=== PATIENT | male | born 1995 | race Caucasian/White ===

== ENCOUNTER 2023-01-24 20:01 | Emergency (ER) | payer SELFPAY ==
[2023-01-24 20:22] VITALS: BP 127/73; PULSE 75; RESP 14; TEMP 36.7; O2SAT 98; BMI 32.6
--- NOTE | 2023-01-24 20:26 | ECG_ITS ---
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
--- NOTE | 2023-01-24 20:31 | XR_ITS ---
The [address] [address] Patient Name: MANSOOR KIM MRN: [id number] date: 1995 Sex: M Assigned Patient Location: ER Current Patient Location: ER Accession/Order Number: [id number] Exam Date: 01/24/2023 21:10 Report Date: 01/24/2023 21:29 At the request of: EPI ENGLE Procedure: XR chest 2V EXAM: XR chest 2V REASON FOR EXAM: Male, 27 years, cp. TECHNIQUE: PA and lateral views of the chest are performed. COMPARISON: None. FINDINGS: The lungs are expanded and clear. Normal pleura. Normal size heart. Normal mediastinum and moe. Normal visualized pulmonary arteries. Normal visualized aortic arch and descending thoracic aorta. Normal visualized thoracic spine. Normal visualized ribs, clavicles, and shoulders. There is no demonstrated abnormality of the visualized soft tissue structures of the upper abdomen. XR/XR chest 2V IMPRESSION: Normal examination of the chest. Electronically authenticated by: NIRAV PENA Date: 01/24/2023 21:29
--- NOTE | 2023-01-24 20:39 | PC.NURSE ---
no chest pain at this time
[2023-01-24 21:12] LABS: Basophils Percent Auto 0.4 % (0.2-2.0); Eosinophils Percent Auto 0.5 % (0.9-7.0); Hematocrit 46.9 % (42.0-54.0); Immature Granulocytes Abs Auto 0.03 10^3/uL (0.00-0.03); Immature Granulocytes Pct Auto 0.4 % (0.0-0.5); Lymphocytes Absolute Auto 1.8 10^3/uL (1.2-3.8); Lymphocytes Percent Auto 23.6 % (20.5-60.0); Mean Corpuscular HGB Conc 34.1 g/dL (29.9-35.2); Mean Corpuscular Hemoglobin 29.8 pg (25.9-34.0); Mean Corpuscular Volume 87.3 fL (80.0-94.0); Mean Platelet Volume 8.4 fL (9.5-13.5); Monocytes Absolute Auto 0.5 10^3/uL (0.3-0.8); Monocytes Percent Auto 6.6 % (1.7-12.0); Neutrophils Absolute Auto 5.1 10^3/uL (1.4-6.5); Neutrophils Percent Auto 68.5 % (43.0-75.0); Platelet Count 265 10^3/uL (150-450); Red Blood Count 5.37 10^6/uL (4.70-6.10); Red Cell Distribution Width 12.1 % (11.0-15.0); White Blood Count 7.4 10^3/uL (4.0-11.0)
[2023-01-24 21:27] LABS: Alanine Aminotransferase 34 U/L (16-63); Albumin Globulin Ratio 1.4; Albumin Level 4.1 g/dL (3.4-5.0); Alkaline Phosphatase 57 U/L (46-116); Anion Gap 8.8; Aspartate Amino Transferase 17 U/L (15-37); BUN Creatinine Ratio 11.2; Bilirubin Total 0.6 mg/dL (0.2-1.0); Calcium 8.5 mg/dL (8.5-10.1); Carbon Dioxide 29.9 mmol/L (21.0-32.0); Chloride 103 mmol/L (98-107); Estimated GFR (African America >60 (>=60); Estimated GFR (Non-African Ame >60 (>=60); Globulin 2.9 g/dL; Glucose 87 mg/dL (74-106); Potassium 3.7 mmol/L (3.5-5.1); Sodium 138 mmol/L (136-145); Troponin I High Sensitivity <4.0 pg/mL (4.0-76.1)
--- NOTE | 2023-01-24 22:35 | PC.NURSE ---
denies chest pain at this time, EKG complete at time of triage
--- NOTE | 2023-01-24 22:49 | ED_ITS ---
HPI - Chest Pain General Chief Complaint: Chest Pain Stated Complaint: Chest pain Back Pain Time Seen by Provider: 01/24/23 20:31 Source: patient Mode of arrival: walk-in History of Present Illness HPI narrative: Patient presents to emergency department complaining of left-sided chest pain and back pain. Patient states he has pain to his suprascapular area and the lower angle of the scapula intermittently for over a month. States the pain gets better when he exerts himself not necessarily when he is lifting. The patient to sit forward. He hasn't taking anything at home for the pain. Denies any paresthesias, weakness. He denies any cough, runny nose, or sore throat. Denies any fever, or chills. He denies any abdominal pain, nausea, vomiting, diarrhea, constipation. He denies any flank pain, hematuria, dysuria. Patient states that he vapes. Has no previous history of heart disease or thromboembolic disease. He denies any lower extremity edema, or cramping. Pain is reproducible to palpation. Pain is worse when he moves his arm but after a while it actually gets better. Related Data Previous Rx's Medication Instructions Recorded cyclobenzaprine 10 mg tablet 10 mg PO TID PRN muscle spasm #14 01/24/23 tabs ibuprofen 800 mg tablet 800 mg PO Q8H PRN pain #20 tabs 01/24/23 Allergies Allergy/AdvReac Type Severity Reaction Status Date / Time amoxicillin Allergy Severe Verified 01/24/23 20:21 Review of Systems ROS Status of ROS 10 or more systems reviewed and unremarkable except as noted in history and below Exam Narrative Exam Narrative: Nurses notes and vital signs reviewed and patient is not hypoxic. General: Nontoxic, Well-appearing and in no apparent distress. Skin: Warm, dry, no pallor noted. No Rash Head: Normocephalic, atraumatic. Neck: Supple, non-tender. Eye: Pupils are equal, round and EOMI. No scleral icterus. Ears, Nose, Mouth, and Throat: TM clear, no posterior oropharynx erythema or nasal mucosal hypertrophy, uvula is mid-line Oral mucosa is moist Cardiovascular: Regular Rate and Rhythm without murmur, gallop or rub. Respiratory: No accessory muscle use or respiratory distress. Lungs are clear to auscultation, no wheezing, rales or rhonchi Chest Wall: no tenderness Back: No midline thoracic or lumbar vertebral tenderness. Tenderness to palpation to the left suprascapular area and lower scapular angle and thoracic paraspinal muscles spasms. There is no erythema, signs of trauma, infection. Pain is reproducible on palpation. No CVA tenderness Musculoskeletal: normal ROM, no calf or popliteal tenderness, no lower extremity edema/swelling GI: Abdomen is soft, non-distended. Normal bowel sounds. No masses appreciated. No tenderness to palpation. No rebound, guarding, or rigidity noted. Neurological: A&O x4. No cranial nerve dysfunction observed. No truncal ataxia. Moves all extremities. Sensation intact. Psychiatric: Cooperative and interactive. Normal mood and affect. Constitutional Vital Signs, click to edit/add: Last Vital Signs Temp 98.0 F 01/24/23 20:22 Pulse 63 01/24/23 22:51 Resp 16 01/25/23 00:00 BP 138/72 01/25/23 00:00 Pulse Ox 99 01/25/23 00:00 O2 Del Method Room Air 01/25/23 00:00 Course Vital Signs Vital signs: Vital Signs Temperature 98.0 F 01/24/23 20:22 Pulse Rate 75 01/24/23 20:22 Respiratory Rate 14 01/24/23 20:22 Blood Pressure 127/73 01/24/23 20:22 Pulse Oximetry 98 01/24/23 20:22 Oxygen Delivery Method Room Air 01/24/23 20:22 Temperature 98.0 F 01/24/23 20:22 Pulse Rate 63 01/24/23 22:51 Respiratory Rate 16 01/25/23 00:00 Blood Pressure 138/72 01/25/23 00:00 Pulse Oximetry 99 01/25/23 00:00 Oxygen Delivery Method Room Air 01/25/23 00:00 MDM - Chest Pain MDM Narrative Medical decision making narrative: The EKG shows sinus rhythm with normal axis, nonspecific EKG. Chest x-ray is unremarkable. Labs studies were done 2 troponins were done and there is no significant delta. Patient was given Toradol IV and which helped relieve his symptoms. All results were discussed with patient. Patient is advised to follow up with primary care doctor. He is given a prescription for Flexeril, and NSAIDs. At this time the patient is without objective evidence of an acute process requiring hospitalization or inpatient management. The patient has remained hemodynamically stable. No additional indication for emergent studies at this time. I answered all questions. Discussed discharge instructions including standard anticipatory guidance and what should prompt a return to the emergency department, including if they get worse are not getting better or develops any new or concerning symptoms. I've given them specific time frame in which to follow-up, and who to follow-up with. The patient demonstrates understanding. Patient is nontoxic and stable for discharge with outpatient follow-up. This note was created with the assistance of a speech recognition program. Although the intention is to generate documents that actually reflects the content of the visit, no guarantees can be provided that every mistake has been identified and corrected by editing. Lab Data Attestation: I reviewed the patient's lab results. Labs: Lab Results 01/24/23 01/24/23 01/24/23 Range/Units 21:00 22:37 22:45 WBC 7.4 (4.0-11.0) 10^3/uL RBC 5.37 (4.70-6.10) 10^6/uL Hgb 16.0 (14.0-18.0) g/dL Hct 46.9 (42.0-54.0) % MCV 87.3 (80.0-94.0) fL MCH 29.8 (25.9-34.0) pg MCHC 34.1 (29.9-35.2) g/dL RDW 12.1 (11.0-15.0) % Plt Count 265 (150-450) 10^3/uL MPV 8.4 L (9.5-13.5) fL Neut % (Auto) 68.5 (43.0-75.0) % Lymph % (Auto) 23.6 (20.5-60.0) % Hodgeman % (Auto) 6.6 (1.7-12.0) % Eos % (Auto) 0.5 L (0.9-7.0) % Baso % (Auto) 0.4 (0.2-2.0) % Neut # (Auto) 5.1 (1.4-6.5) 10^3/uL Lymph # (Auto) 1.8 (1.2-3.8) 10^3/uL Hodgeman # (Auto) 0.5 (0.3-0.8) 10^3/uL Eos # (Auto) 0.0 (0.0-0.7) 10^3/uL Baso # (Auto) 0.0 (0.0-0.1) 10^3/uL Abs Immat Gran (auto) 0.03 (0.00-0.03) 10^3/uL Imm/Tot Granulo (auto) 0.4 (0.0-0.5) % Sodium 138 (136-145) mmol/L Potassium 3.7 (3.5-5.1) mmol/L Chloride 103 (98-107) mmol/L Carbon Dioxide 29.9 (21.0-32.0) mmol/L Anion Gap 8.8 BUN 12.0 (7.0-18.0) mg/dL Creatinine 1.07 (0.70-1.30) mg/dL Est GFR ( Amer) >60 (>=60) Est GFR (Non-Af Amer) >60 (>=60) BUN/Creatinine Ratio 11.2 Glucose 87 (74-106) mg/dL Calcium 8.5 (8.5-10.1) mg/dL Total Bilirubin 0.6 (0.2-1.0) mg/dL AST 17 (15-37) U/L ALT 34 (16-63) U/L Alkaline Phosphatase 57 (46-116) U/L Troponin I High Sens <4.0 L 4.1 (4.0-76.1) pg/mL Total Protein 7.0 (6.4-8.2) g/dL Albumin 4.1 (3.4-5.0) g/dL Globulin 2.9 g/dL Albumin/Globulin Ratio 1.4 Urine Opiates Screen Negative (NEGATIVE) Ur Buprenorphine Scrn Negative (NEGATIVE) Ur Oxycodone Screen Negative (NEGATIVE) Urine Methadone Screen Negative (NEGATIVE) Ur Propoxyphene Screen Negative (NEGATIVE) Ur Barbiturates Screen Negative (NEGATIVE) U Tricyclic Antidepress Negative (NEGATIVE) Ur Phencyclidine Scrn Negative (NEGATIVE) Ur Amphetamines Screen Negative (NEGATIVE) U Methamphetamines Scrn Negative (NEGATIVE) U Benzodiazepines Scrn Negative (NEGATIVE) Urine Cocaine Screen Negative (NEGATIVE) U Cannabinoids Screen Positive A (NEGATIVE) ECG Data Attestation: I personally reviewed and interpreted this ECG as follows: Heart Score History: Slightly/Non-Suspicious ECG: Normal Age: <45 years Risk Factors: No Risk Factors Troponin: <Normal Limit Total Heart Score Recommendations & Risks:: 0 Discharge Plan Discharge Chief Complaint: Chest Pain Clinical Impression: Muscle strain of left upper back, Chest pain Patient Disposition: Home, Self-Care Time of Disposition Decision: 23:47 Condition: Good Mode of Transportation: Private Vehicle Prescriptions / Home Meds: New ibuprofen 800 mg tablet 800 mg PO Q8H PRN (Reason: pain) Qty: 20 0RF cyclobenzaprine 10 mg tablet 10 mg PO TID PRN (Reason: muscle spasm) Qty: 14 0RF Instructions: Chest Pain (ED), Thoracic Back Strain (ED) Stand Alone Forms: Portal Instructions Referrals: Jr Odom MD [Primary Care Provider] - 1 week Discharge Date/Time: 01/25/23 00:01
[2023-01-24 22:51] VITALS: BP 142/68; PULSE 63; RESP 18; O2SAT 99
[2023-01-24 23:10] LABS: Amphetamine Screen Urine NEGATIVE (NEGATIVE); Cannabinoid Screen Urine POSITIVE (NEGATIVE); Cocaine Screen Urine NEGATIVE (NEGATIVE); Methamphetamines Screen Urine NEGATIVE (NEGATIVE); Opiate Screen Urine NEGATIVE (NEGATIVE); Phencyclidine Screen Urine NEGATIVE (NEGATIVE)
[2023-01-24 23:11] LABS: Barbiturates Screen Urine NEGATIVE (NEGATIVE); Benzodiazepines Screen Urine NEGATIVE (NEGATIVE); Buprenorphine Screen Urine NEGATIVE (NEGATIVE); Methadone Screen Urine NEGATIVE (NEGATIVE); Oxycodone Screen Urine NEGATIVE (NEGATIVE); Tricyclic Antidepressant Urine NEGATIVE (NEGATIVE)
[2023-01-24 23:19] LABS: Troponin I High Sensitivity 4.1 pg/mL (4.0-76.1)
[2023-01-24] MEDS: KETOROLAC TROMETHAMINE 60 MG/2 ML VIAL IM (23:40)
[2023-01-25] VITALS: BP 138/72; RESP 16; O2SAT 99
== END 2023-01-25 00:01 | disposition home or self-care (01) ==
PROVIDERS: Emergency Provider Emergency Medicine; PCP Family Medicine
DX: R07.9 Chest pain, unspecified (principal); S29.012A Strain of muscle and tendon of back wall of thorax, initial encounter; X58.XXXA Exposure to other specified factors, initial encounter; F17.290 Nicotine dependence, other tobacco product, uncomplicated
CPT/HCPCS: 36415; 71046; 80053; 80307; 84484; 85025; 93005; 96372; 99285

== ENCOUNTER 2023-10-31 03:46 | Emergency (ER) | payer BC, SELFPAY ==
[2023-10-31 03:58] VITALS: BP 139/70; PULSE 82; TEMP 36.6; O2SAT 99; BMI 33.7
--- NOTE | 2023-10-31 04:15 | ED.EYEPROB1 ---
HPI - Eye Problem General Chief complaint: Eye Problems Stated complaint: EYE PAIN Time Seen by Provider: 10/31/23 04:05 Source: patient Mode of arrival: walk-in Limitations: no limitations History of Present Illness HPI Narrative: patient [place] and believes he got corn debris in the left eye. Rinsed his eye out and it felt better. Woke up this AM with increased pain of the eye. no headache. Does not wear contacts Related Data Previous Rx's ?Medication ?Instructions ?Recorded cyclobenzaprine 10 mg tablet 10 mg PO TID PRN muscle spasm #14 01/24/23 tabs ibuprofen 800 mg tablet 800 mg PO Q8H PRN pain #20 tabs 01/24/23 Allergies Allergy/AdvReac Type Severity Reaction Status Date / Time amoxicillin Allergy Severe Verified 10/31/23 04:04 Review of Systems ROS Status of ROS 10 or more systems reviewed and unremarkable except as noted in history and below Exam Constitutional Vital Signs, click to edit/add: Last Vital Signs Temp 98 F 10/31/23 03:58 Pulse 82 10/31/23 03:58 Resp 16 10/31/23 03:58 BP 139/70 10/31/23 03:58 Pulse Ox 99 10/31/23 03:58 O2 Del Method Room Air 10/31/23 03:58 Common normals: average body habitus, oriented x3, no limitations, healthy appearing, alert and well nourished Other: left eye photosensitive HENMT Common normals: normocephalic and head/scalp atraumatic Other: left eye tearing. mild injection . no chemosis. photosensitive. No obvious FB on inspection Respiratory Common normals: normal respiratory effort and no use of accessory muscles Cardio Common normals: regular rate, regular rhythm and S1 normal heart sound Extremity Common normals: normal to inspection Neuro Common normals: CN's II-XII intact bilaterally, moves all extremities and no focal motor deficits Psych Appearance: grossly normal Course Vital Signs Vital signs: Vital Signs Temperature 98 F 10/31/23 03:58 Pulse Rate 82 10/31/23 03:58 Respiratory Rate 16 10/31/23 03:58 Blood Pressure 139/70 10/31/23 03:58 Pulse Oximetry 99 10/31/23 03:58 Oxygen Delivery Method Room Air 05/07/24 03:58 Temperature 98 F 10/31/23 03:58 Pulse Rate 82 10/31/23 03:58 Respiratory Rate 16 10/31/23 03:58 Blood Pressure 139/70 10/31/23 03:58 Pulse Oximetry 99 10/31/23 03:58 Oxygen Delivery Method Room Air 10/31/23 03:58 MDM - Eye Problem MDM Narrative Medical decision making narrative: patient presents with sensation of FB in the left eye. No obvious FB on inspection. Left upper eyelid everted and no obvious FB. tetracaine instilled and provided temporary relief. Fluorescein placed. No definite corneal abrasion identified patient informed it was unclear what was causing his eye discomfort. Tobramycin placed in the eye. Patient instructed to return within 12 hours for recheck Discharge Plan Discharge Stand Alone Forms: Portal Instructions Chief Complaint: Eye Problems Clinical Impression: Acute left eye pain Patient Disposition: Home, Self-Care Prescriptions / Home Meds: No Action ibuprofen 800 mg tablet 800 mg PO Q8H PRN (Reason: pain) Qty: 20 0RF cyclobenzaprine 10 mg tablet 10 mg PO TID PRN (Reason: muscle spasm) Qty: 14 0RF Print Language: Cameroonian Instructions: Eye Pain (ED) Additional Instructions: instill 2 drops in the eye every 2 hours. Return within 12 hours to have the eye rechecked. Return sooner if increasing pain Referrals: Jr Odom MD [Primary Care Provider] - 1 week
[2023-10-31] MEDS: TOBRAMYCIN 0.3% OP SOL 100 DROP/5 ML BOTTLE OP (04:49)
[2023-10-31] MEDS: FLUORESCEIN SODIUM 1 MG STRIP OP (04:50)
[2023-10-31] MEDS: HYDROCODONE/ACET 5-325 MG TABLET 2 TAB PO (04:50)
[2023-10-31] MEDS: TETRACAINE HCL 0.5% OP SOL 80 DROP/4 ML BOTTLE OP (04:51)
== END 2023-10-31 04:57 | disposition home or self-care (01) ==
PROVIDERS: Emergency Provider Internal Medicine; PCP Family Medicine
DX: H57.12 Ocular pain, left eye (principal)
CPT/HCPCS: 99284

== ENCOUNTER 2023-11-03 11:11 | Outpatient (OUT) | payer BC, SELFPAY ==
[2023-11-03 11:53] LABS: Basophils Absolute Auto 0.1 10^3/uL (0.0-0.1); Basophils Percent Auto 0.8 % (0.2-2.0); Eosinophils Absolute Auto 0.1 10^3/uL (0.0-0.7); Eosinophils Percent Auto 1.6 % (0.9-7.0); Hematocrit 49.4 % (42.0-54.0); Hemoglobin 16.4 g/dL (14.0-18.0); Immature Granulocytes Abs Auto 0.03 10^3/uL (0.00-0.03); Immature Granulocytes Pct Auto 0.5 % (0.0-0.5); Lymphocytes Absolute Auto 1.7 10^3/uL (1.2-3.8); Lymphocytes Percent Auto 27.9 % (20.5-60.0); Mean Corpuscular HGB Conc 33.2 g/dL (29.9-35.2); Mean Corpuscular Hemoglobin 29.7 pg (25.9-34.0); Mean Corpuscular Volume 89.3 fL (80.0-94.0); Mean Platelet Volume 8.7 fL (9.5-13.5); Monocytes Absolute Auto 0.5 10^3/uL (0.3-0.8); Monocytes Percent Auto 8.2 % (1.7-12.0); Neutrophils Absolute Auto 3.8 10^3/uL (1.4-6.5); Platelet Count 273 10^3/uL (150-450); Red Blood Count 5.53 10^6/uL (4.70-6.10); Red Cell Distribution Width 12.1 % (11.0-15.0); White Blood Count 6.2 10^3/uL (4.0-11.0)
[2023-11-03 12:33] LABS: Estimated Average Glucose 88 mg/dL; Glycohemoglobin A1C 4.7 % (4.5-6.2)
[2023-11-03 13:10] LABS: Alanine Aminotransferase 37 U/L (16-63); Albumin Globulin Ratio 1.2; Albumin Level 4.1 g/dL (3.4-5.0); Alkaline Phosphatase 61 U/L (46-116); Anion Gap 13.3; Aspartate Amino Transferase 14 U/L (15-37); BUN Creatinine Ratio 27.9; Bilirubin Total 0.6 mg/dL (0.2-1.0); Calcium 9.5 mg/dL (8.5-10.1); Carbon Dioxide 26.9 mmol/L (21.0-32.0); Chloride 103 mmol/L (98-107); Chol HDL Ratio 2.5; Cholesterol 167 mg/dL (<=200); Estimated GFR (African America >60 (>=60); Estimated GFR (Non-African Ame >60 (>=60); Globulin 3.4 g/dL; Glucose 88 mg/dL (74-106); HDL Cholesterol 66 mg/dL (40-60); Potassium 4.2 mmol/L (3.5-5.1); Sodium 139 mmol/L (136-145); Thyroid Stimulating Hormone 0.942 uIU/mL (0.358-3.740); Total Protein 7.5 g/dL (6.4-8.2); Triglycerides 80 mg/dL (<=150); Uric Acid 5.6 mg/dL (3.5-7.2)
[2023-11-04 12:09] LABS: Insulin 17.1 uIU/mL (2.6-24.9)
== END 2023-11-03 11:12 | disposition home or self-care (01) ==
LOC: LAB 11:12
PROVIDERS: PCP Family Medicine; Visit Provider Family Medicine
DX: Z00.00 Encounter for general adult medical examination without abnormal findings (principal)
CPT/HCPCS: 36415; 80053; 80061; 83036; 83525; 84436; 84443; 84481; 84550; 85025

== ENCOUNTER 2024-10-02 16:14 | Emergency (ER) | payer SELFPAY ==
[2024-10-02 16:20] VITALS: BP 139/89; PULSE 98; O2SAT 97; BMI 34.4
--- NOTE | 2024-10-02 16:29 | ECG_ITS ---
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 Measurements Intervals [place] Rate: 83 P: 70 MD: 142 QRS: 69 QRSD: 86 T: -4 QT: 344 QTc: 384 Interpretive Statements 1100 Sinus rhythm 1102 Sinus arrhythmia [address] & Twave abnormality 9150 abnormal ECG Compared to ECG 01/24/2023 20:29:03 No significant changes seen Electronically Signed On 10-03-2024 8:07:01 EDT by YAYA SORIANO M.D.
[2024-10-02 16:36] VITALS: PULSE 83
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
[2024-10-02 17:32] LABS: Bilirubin Urine NEGATIVE (NEGATIVE); Blood Urine NEGATIVE (NEGATIVE); Clarity Urine CLEAR (CLEAR); Color Urine YELLOW (YELLOW); Glucose Urine UA NEGATIVE (NEGATIVE); Ketones Urine NEGATIVE (NEGATIVE); Leukocyte Esterase Urine NEGATIVE (NEGATIVE); Nitrite Urine NEGATIVE (NEGATIVE); Protein Urine TRACE mg/dL (NEG/TRACE)
[2024-10-02 17:38] LABS: Basophils Absolute Auto 0.1 10^3/uL (0.0-0.1); Basophils Percent Auto 0.5 % (0.2-2.0); Eosinophils Percent Auto 0.2 % (0.9-7.0); Hematocrit 47.1 % (42.0-54.0); Hemoglobin 16.3 g/dL (14.0-18.0); Immature Granulocytes Abs Auto 0.04 10^3/uL (0.00-0.03); Immature Granulocytes Pct Auto 0.3 % (0.0-0.5); Lymphocytes Absolute Auto 1.2 10^3/uL (1.2-3.8); Lymphocytes Percent Auto 9.5 % (20.5-60.0); Mean Corpuscular HGB Conc 34.6 g/dL (29.9-35.2); Mean Corpuscular Hemoglobin 30.5 pg (25.9-34.0); Mean Platelet Volume 8.8 fL (9.5-13.5); Monocytes Percent Auto 8.2 % (1.7-12.0); Neutrophils Absolute Auto 9.9 10^3/uL (1.4-6.5); Neutrophils Percent Auto 81.3 % (43.0-75.0); Platelet Count 281 10^3/uL (150-450); Red Blood Count 5.35 10^6/uL (4.70-6.10); Red Cell Distribution Width 11.9 % (11.0-15.0); White Blood Count 12.2 10^3/uL (4.0-11.0)
[2024-10-02 17:43] LABS: Bacteria Urine MODERATE #/HPF (NONE SEEN); Cast Seen? NONE SEEN #/LPF (NONE SEEN); Crystals Seen? None Seen #/HPF (None Seen); Mucus Urine LARGE (NONE SEEN); RBC Urine 0-2 #/HPF (0-2); Squamous Epithelial Cell Urine RARE #/LPF (NONE/RARE); Urine Culture Indicated YES-FRMC; WBC Urine 0-2 #/HPF (NONE SEEN)
[2024-10-02 17:52] LABS: Alanine Aminotransferase 40 U/L (16-63); Albumin Globulin Ratio 1.4; Albumin Level 4.3 g/dL (3.4-5.0); Alkaline Phosphatase 65 U/L (46-116); Anion Gap 10.8; Aspartate Amino Transferase 18 U/L (15-37); BUN Creatinine Ratio 12.2; Bilirubin Total 1.1 mg/dL (0.2-1.0); Calcium 9.3 mg/dL (8.5-10.1); Chloride 104 mmol/L (98-107); Estimated GFR (African America >60 (>=60 mL/min/1.73m^2); Estimated GFR (Non-African Ame >60 (>=60 mL/min/1.73m^2); Glucose 94 mg/dL (74-106); Potassium 3.8 mmol/L (3.5-5.1); Sodium 138 mmol/L (136-145); Total Protein 7.3 g/dL (6.4-8.2)
== END 2024-10-02 18:36 | disposition home or self-care (01) ==
PROVIDERS: Emergency Provider Emergency Medicine; PCP Family Medicine
DX: S13.4XXA Sprain of ligaments of cervical spine, initial encounter (principal); S16.1XXA Strain of muscle, fascia and tendon at neck level, initial encounter; V86.59XA Driver of other special all-terrain or other off-road motor vehicle injured in nontraffic accident, initial encounter
CPT/HCPCS: 36415; 70450; 71045; 72125; 72170; 80053; 81001; 85025; 87086; 93005; 99285

== ENCOUNTER 2024-12-08 01:14 | Emergency (ER) | payer SELFPAY ==
--- OUTSIDE RECORDS SUMMARY | 2020-01-28 04:15 | XMS_ITS | Continuity of Care Document ---
Author Organization [facility] Address [address] [place] [address] Phone Care Team Providers Care Weathercaster Name Role Phone Kimani Garza DDS Unavailable Unavail able Allergies, Adverse Reactions, Alerts Substance Reaction Status Criticality Penicillins Unknown Active No Information Procedures Procedure Date PPE Extract; Erupted Th/exposted Rt Extract; Erupted Th/exposted Rt Extract; Erupted Th/exposted Rt Extract; Erupted Th/exposted Rt No Charge Panoramic Film Limited Oral Eval Extract; Erupted Th/exposted Rt Oral Hygiene Instruction Advance Directives Directive Yes / No Effective Date File Name No Information Encounters Encounter Description Practice Location Reason(s) For Visit Diagnoses Date Provider Providers Copied on Encounter [facility], [address] [place] [address], [id number] , tel:[phone] Dental Clinic Ext 3rds (chief complaint) Encounter for screening for dental disordersEncounter for screening for dental disorders 0 Greg Harman. [address] [place] [address], [id number], [place]. tel:[phone] [facility], [address] [place] [address], [id number] , tel: [phone] Dental Clinic No Information 0 Erik Vicente. [address] [place] [address], [id number], [place]. tel:[phone] [facility], [address] [facility], [place], [place], [id number] , [place] tel:[phone] Dental Clinic Encounter for screening for dental disorders 0 Erik Vicente. [address], [place], [id number], [place]. tel:[phone] Family History Family Member Type Diagnosis Age At Onset Father Problem Alive and well Mother Problem Alive and well Payers Payer name Insurance type Covered alliance party ID Erica minor(s) [facility] De ntal Claims [id number] Social History Type Description Quantity Date Captured Comments Alcohol Use Details Unknown Caffeine Use Details Unknown Tobacco Use Status Occasional cigarette smoker Smoking Status Heavy tobacco smoker Sex Male Sexual Orientation Straight or heterosexual Gender Identity Male Chief Complaint And Reason For Visit From encounter dated '01/28/2020 08:15'. Ext 3rds (chief complaint). Description: Ext 3rds Reason For Referral Reason For Referral No Information Plan Of Treatment Date Type Action Status Goal Tobacco cessation counseling completed History Of Present Illness Encounter Date Complaint History Of Prese nt Illness Ext 3rds Ext 3rds Functional Status Date Functional Assessmen t No Information Instructions Date Instruction Additional Infor mation No Information Assessments Type Assessment Date assessment Encounter for screening for dent al disorders Patient Care Teams Name Effective Dates (start - stop) Status Members No Information
[2024-12-08 01:20] VITALS: BP 163/105; PULSE 91; TEMP 36.9; O2SAT 99; BMI 33.7
--- OUTSIDE RECORDS SUMMARY | 2024-12-08 01:21 | XMS_ITS | CCD ---
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 [facility] Monocytes/100 WBC (Bld) 8.0 % Normal 4.0 - 14.0 % [facility] Neutrophils (Bld) [#/Vol] 6.1 E9/L Normal 2.0 - 7.5 E9/L [facility] Neutrophils/100 WBC (Bld) 77.2 % High 36.0 - 75.0 % [facility] Platelet mean volume (Bld) [Entitic vol] 7.1 fL Normal 6.4 - 10.8 fL [facility] Platelets (Bld) [#/Vol] 325.0 E9/L Normal 150.0 - 500.0 E9/L [facility] RBC (Bld) [#/Vol] 5.8 E12/L Normal 4.3 - 5.9 E12/L [facility] WBC corrected for nucl RBC Auto (Bld) [#/Vol] 7.9 E9/L Normal 4.0 - 11.0 E9/L [facility] eGFRon 10-05-2024 eGFR 94 mL/min/1.73 m2 Normal >=59 [facility] Comment on above: Performed By: #### 1 [id number] #### [facility] [address] [place] [id number] Urine Cultureon 10-02-2024 Bacteria identified Cx Nom (U) No Growth 2 Days PERFORMED BY: [facility] [address] [id number] PATHOLOGIST NURSING PROGRAM COORDINATOR MURRAY ALMANZAR M.D. Normal [facility] Comment on above: Performed By: #### C UU #### [facility] [address] [id number] [facility] ACETAMINOPHENon 05-12-2020 Acetaminophen [Mass/Vol] <10.0 Critically low 10.1-30.0 [facility] Comment on above: Performed By: #### E TH, SALYC, CMP, ACET #### [facility] [address] [id number] Marily Keyla CBC AUTO DIFFon 05-12-2020 Basophils (Bld) [#/Vol] 0.0 103/ul Normal 0.0-0.1 [facility] Comment on above: Performed By: #### C BC #### [facility] [address] [place], [place] [id number] Marily Keyla Basophils/100 WBC (Bld) 0.4 % Normal 0.2-2.0 [facility] Comment on above: Performed By: #### C BC #### [facility] [address] [place], [place] [id number] Marily Keyla Eosinophils (Bld) [#/Vol] 0.0 103/ul Normal 0.0-0.7 [facility] Comment on above: Performed By: #### C BC #### [facility] [address] [id number] Marily Keyla Eosinophils/100 WBC (Bld) 0.1 % Critically low 0.9-7.0 [facility] Comment on above: Performed By: #### C BC #### [facility] [address] [place], [place] [phone] Marily Keyla Erythrocyte distribution width (RBC) [Ratio] 12.6 % Normal 11.0-15.0 [facility] Comment on above: Performed By: #### C BC #### [facility] [address] [address] Marilyamy Ramires Hematocrit (Bld) [Volume fraction] 49.8 % Normal 42.0-54.0 [facility] Comment on above: Performed By: #### C BC #### [facility] [address] [place], [place] [phone] Marily Keyla Hemoglobin (Bld) [Mass/Vol] 16.8 g/dL Normal 14.0-18.0 [facility] Comment on above: Performed By: #### C BC #### [facility] [address] [place], [place] [phone] Marily Keyla IG # 0.05 10e3/ul Critically high 0.00-0.03 [facility] Comment on above: Performed By: #### C BC #### [facility] [address] [place] [address] Marily Keyla IG % 0.5 % Normal 0.0-0.5 [facility] Comment on above: Performed By: #### C BC #### [facility] [address] [place], [place] [phone] Marily Keyla Lymphocytes (Bld) [#/Vol] 1.1 103/ul Critically low 1.2-3.8 [facility] Comment on above: Performed By: #### C BC #### [facility] [address] [place], [place] [phone] Marily Keyla Lymphocytes/100 WBC (Bld) 10.4 % Critically low 20.5-60.0 [facility] Comment on above: Performed By: #### C BC #### [facility] [address] [place], [place] [phone] Marily Ramires MANUAL DIFF REQ NO Normal [facility] Comment on above: Performed By: #### C BC #### [facility] [address] [place], [place] [phone] Marily Cesaren MCH (RBC) [Entitic mass] 30.0 pg Normal 25.9-34.0 [facility] Comment on above: Performed By: #### C BC #### [facility] [address] [place], [place] [phone] Marily Keyla MCHC (RBC) [Mass/Vol] 33.7 g/dL Normal 29.9-35.2 [facility] Comment on above: Performed By: #### C BC #### [facility] [address] [id number] Marily Ramires MCV (RBC) [Entitic vol] 88.9 fL Normal 80.0-94.0 [facility] Comment on above: Performed By: #### C BC #### [facility] [address] [phone] Marily Keyla Monocytes (Bld) [#/Vol] 0.9 103/ul Critically high 0.3-0.8 [facility] Comment on above: Performed By: #### C BC #### [facility] [address] [place], [place] [phone] Marily Keyla Monocytes/100 WBC (Bld) 8.4 % Normal 1.7-12.0 [facility] Comment on above: Performed By: #### C BC #### [facility] [address] [place], [place] [phone] Marily Keyla Neutrophils (Bld) [#/Vol] 8.2 103/ul Critically high 1.4-6.5 [facility] Comment on above: Performed By: #### C BC #### [facility] [address] [place], [place] [phone] Marily Keyla Neutrophils/100 WBC (Bld) 80.2 % Critically high 43.0-75.0 [facility] Comment on above: Performed By: #### C BC #### [facility] [address] [place], [place] [phone] Marilyamy Cesaren Platelet mean volume (Bld) [Entitic vol] 8.7 fL Critically low 9.5-13.5 [facility] Comment on above: Performed By: #### C BC #### [facility] [address] [place], [place] [phone] Marily Keyla Platelets (Bld) [#/Vol] 302 103/ul Normal 150-450 [facility] Comment on above: Performed By: #### C BC #### [facility] [address] [place] [address] Marily Ramires RBC (Bld) [#/Vol] 5.60 106/ul Normal 4.70-6.10 [facility] Comment on above: Performed By: #### C BC #### [facility] [address] [place] [address] Marily Ramires WBC (Bld) [#/Vol] 10.2 103/ul Normal 4.0-11.0 [facility] Comment on above: Performed By: #### C BC #### [facility] [address] [place] [address] Marily Ramires DRUG SCREEN RAPID (URINE)on 05-12-2020 AMP Negative Normal NEGATIVE [facility] Comment on above: Performed By: #### D RUGRPD #### [facility] [address] [place] [address] Marilyamy Ramires BAR Negative Normal NEGATIVE [facility] Comment on above: Performed By: #### D RUGRPD #### [facility] [address] [place] [address] Marily Keyla BUP Negative Normal NEGATIVE [facility] Comment on above: Performed By: #### D RUGRPD #### [facility] [address] [place] [address] Marilyamy Ramires BZO Negative Normal NEGATIVE [facility] Comment on above: Performed By: #### D RUGRPD #### [facility] [address] [place] [address] Marilyamy Cesaren RAHEL Negative Normal NEGATIVE [facility] Comment on above: Performed By: #### D RUGRPD #### [facility] [address] [place] [address] Marily Keyla CUT-OFFS SEE BELOW Normal [facility] Comment on above: Result Comment: AMP (Amphetamine): 500ng/mL, BAR (Barbituates): 200 ng/mL, BZO (Benzodiazepines): 150 ng/mL, BUP (Buprenorphine): 10 ng/mL, RAHEL (Cocaine): 150 ng/mL, mAMP (Methamphetamine): 500 ng/mL, MTD (Methadone): 200 ng/mL, OPI (Opiates): 100 ng/mL or 2000 ng/mL, OXY (Oxycodone): 100 ng/mL, PCP (Phencyclidine): 25 ng/mL, PPX (Propoxyphene): 300 ng/mL, THC (Cannabinoids): 50 ng/mL, TCA (Trycyclic Antidepressants): 300 ng/mL Performed By: #### D RUGRPD #### [facility] [address] [place] [address] Marily Keyla DRUG CUT HEADER DRUG CLASS TEST SYSTEM CUT-OFF CONCENTRATIONS ARE FOLLOWS: Normal [facility] Comment on above: Performed By: #### D RUGRPD #### [facility] [address] [place] [address] Marily Keyla mAMP Negative Normal NEGATIVE [facility] Comment on above: Performed By: #### D RUGRPD #### [facility] [address] [place] [address] Marily Keyla MTD Negative Normal NEGATIVE [facility] Comment on above: Performed By: #### D RUGRPD #### [facility] [address] [place] [address] Marily Keyla OPI Negative Normal NEGATIVE [facility] Comment on above: Performed By: #### D RUGRPD #### [facility] [address] [place] [address] Marily Keyla OXY Negative Normal NEGATIVE [facility] Comment on above: Performed By: #### D RUGRPD #### [facility] [address] [place] [address] Marily Keyla PCP Negative Normal NEGATIVE [facility] Comment on above: Performed By: #### D RUGRPD #### [facility] [address] [place] [address] Marily Keyla PPX Negative Normal NEGATIVE [facility] Comment on above: Performed By: #### D RUGRPD #### [facility] [address] [place] [address] Marily Keyla TCA Negative Normal NEGATIVE [facility] Comment on above: Performed By: #### D RUGRPD #### [facility] [address] [place] [address] Marily Keyla THC Positive Normal NEGATIVE [facility] Comment on above: Performed By: #### D RUGRPD #### [facility] [address] [place], [place] [phone] Marily Ramires ETHANOL (BLD ALC)on 05-12-20 20 Ethanol [Mass/Vol] NOTE: 80 mg/dl is the legal limit for a blood alcohol level Normal [facility] Comment on above: Performed By: #### E , SALYC, CMP, ACET #### [facility] [address] [place], [place] [phone] Marily Ramires Ethanol [Mass/Vol] mg/dL Normal [facility] Comment on above: Performed By: #### E , SALNATALIE, CMP, ACET #### [facility] [address] [place] [address] Marily Ramires PROF 14(COMP METB)on 020 Albumin [Mass/Vol] 4.5 g/dL Normal 3.5-5.0 [facility] Comment on above: Performed By: #### E , SALYC, CMP, ACET #### [facility] [address] [place] [address] Marilyamy Ramires Albumin/Globulin [Mass ratio] 1.2 {ratio} Normal [facility] Comment on above: Performed By: #### E , SALYC, CMP, ACET #### [facility] [address] [place], [place] [phone] Marily Keyla ALP [Catalytic activity/Vol] 75 U/L Normal 38-126 [facility] Comment on above: Performed By: #### E , SALYC, CMP, ACET #### [facility] [address] [place] [address] Marily Keyla ALT [Catalytic activity/Vol] 58 U/L Normal 21-72 [facility] Comment on above: Performed By: #### E , SALYC, CMP, ACET #### [facility] [address] [place] [address] Marily Keyla Anion gap [Moles/Vol] 18.3 mmol/L Normal [facility] Comment on above: Performed By: #### E TH, SALYC, CMP, ACET #### [facility] [address] [place] [address] Marily Keyla AST [Catalytic activity/Vol] 24 U/L Normal 17-59 [facility] Comment on above: Performed By: #### E TH, SALYC, CMP, ACET #### [facility] [address] [place] [address] Marily Keyla Bilirubin Ql (U) 1.7 mg/dL Critically high 0.2-1.3 [facility] Comment on above: Performed By: #### E , SALYC, CMP, ACET #### [facility] [address] [place] [address] Marily Keyla Calcium [Mass/Vol] 9.9 mg/dL Normal 8.4-10.2 [facility] Comment on above: Performed By: #### E , SALYC, CMP, ACET #### [facility] [address] [place] [address] Marily Keyla Chloride [Moles/Vol] 102 mmol/L Normal 98-107 [facility] Comment on above: Performed By: #### E , SALYC, CMP, ACET #### [facility] [address] [place] [address] Marily Keyla CO2 [Moles/Vol] 20.5 mmol/L Critically low 22.0-30.0 [facility] Comment on above: Performed By: #### E , SALYC, CMP, ACET #### [facility] [address] [place] [address] Marily Keyla Creatinine [Mass/Vol] 1.13 mg/dL Normal 0.66-1.25 [facility] Comment on above: Performed By: #### E , SALYC, CMP, ACET #### [facility] [address] [place] [address] Marily Keyla EGFR-AF WALLISIAN >60 Normal >=60 [facility] Comment on above: Performed By: #### E , SALYC, CMP, ACET #### [facility] [address] [place] [address] Marily Keyla EGFR-NON AF WALLISIAN >60 Normal >=60 [facility] Comment on above: Performed By: #### E , JACOB CMP, ACET #### [facility] [address] [place] [address] Marily Keyla Globulin (S) [Mass/Vol] 3.8 g/dL Normal [facility] Comment on above: Performed By: #### E , SALNATALIE, CMP, ACET #### [facility] [address] [place] [address] Marily Keyla Glucose [Mass/Vol] 125 mg/dL Critically high 74-106 [facility] Comment on above: Performed By: #### E , JACOB, CMP, ACET #### [facility] [address] [place] [address] Marily Keyla Potassium [Moles/Vol] 3.8 mmol/L Normal 3.4-5.0 [facility] Comment on above: Performed By: #### E , JACOB, CMP, ACET #### [facility] [address] [place] [address] Marily Keyla Protein [Mass/Vol] 8.3 g/dL Critically high 6.1-8.2 [facility] Comment on above: Performed By: #### E , SALYC, CMP, ACET #### [facility] [address] [place] [address] Marily Keyla Sodium [Moles/Vol] 137 mmol/L Normal 137-145 [facility] Comment on above: Performed By: #### E , SALYC, CMP, ACET #### [facility] [address] [place] [address] Marily Keyla Urea nitrogen [Mass/Vol] 15.0 mg/dL Normal 9.0-20.0 [facility] Comment on above: Performed By: #### E , SALYC, CMP, ACET #### [facility] [address] [place] [address] Marily Keyla Urea nitrogen/Creatinine [Mass ratio] 13.3 mg/mg [facility] Comment on above: Performed By: #### E , SALNATALIE, CMP, ACET #### [facility] [address] [place] [address] Marily Ramires Rapid Covid-19 PCRon 020 Arte Manifiesto LDT Info SEE BELOW Normal [facility] Comment on above: Result Comment: This test is not yet approved or cleared by the [place] Food and Drug Administration (FDA) . This test was developed by [employer]. The performance characteristics of this test were validated by [facility]. The results are not intended to be used as the sole means for clinical diagnosis or patient management decisions. The [facility] is authorized under Clinical Laboratory Improvement Amendments (CLIA) to perform high-complexity testing. When diagnostic testing is negative, the possibility of a false negative should be considered in the context of a patients recent exposures and the presence of clinical signs and symptoms consistent with SARS-CoV-2. Performed By: #### C VDRPD #### [facility] [address] [place] [address] Marily Ramires SARS-CoV-2 NOT DETECTED Normal NOT DETECTED [facility] Comment on above: Result Comment: . Performed By: #### C VDRPD #### [facility] [address] [place], [place] [id number] Marily Ramires SALICYLATEon 05-12-2020 SALICYLATE =1.0 Normal <=20.0 [facility] Comment on above: Performed By: #### E TH, SALYC, CMP, ACET #### [facility] [address] [place] [address] Marily Ramires Vital Signs Date Time Vital Sign Value Performing Clinician Janet araujo 10-05-2024 12:50-0400 Body temperature 98.6 [degF] Olivier Brunner [facility] 10-05-2024 12:50-0400 Diastolic blood pressure 102 mm[Hg] Olivier Brunner [facility] 10-05-2024 12:50-0400 Heart rate 99 /min Olivier Brunner [facility] 04-12-2025 12:50-0400 Respiratory rate 18 /min Olivier Brunner [facility] 10-05-2024 12:50-0400 SaO2% (BldA) [Mass fraction] 98 % Olivier Brunner [facility] 10-05-2024 12:50-0400 Systolic blood pressure 157 mm[Hg] Olivier Brunner [facility] Encounters Encounter Date Encounter Type Care Provider Facility Start: 10-05-2024 End: 10-05-2024 Emergency department patient visit Olivier Brunner [facility] Start: 10-02-2024 End: 10-02-2024 ambulatory Elisha Walsh [facility] Work Phone: Start: 10-02-2024 End: 10-02-2024 Departed Referred Elisha Walsh DO Work Phone: [facility] Start: 05-12-2020 End: 05-12-2020 Patient encounter procedure ROXANA ODOM Facility:H1 Plan of Treatment Date Care Activity Detail Author Start: 10-02-2024 Urine culture [facility] Start: 10-02-2024 Bacteria identified in Urine by Culture Urine Culture [facility] Payers Date Payer Category Payer Self-pay [id number] 1995 Unknown [id number] 1996 Unknown [id number] 1996 Unknown [id number] 1959 Unknown [id number] Unknown MMO [id number] Unknown [id number] Social History Date Type Detail Facility Start: 05-13-2020 [facility] Start: 10-07-2009 End: 10-04-2024 Sex Male (finding) [facility] Start: 1995 Sex Assigned At Male F [facility] Tobacco smoking status [facility] Sex Assigned At Male [facility] Functional Status Date Assessment Result Facility 10-05-2024 Functional Status N/A [facility] Discharge instructions 10-05-2024 Note Date & Type Note Facility 10-05-2024 Hospital Discharg e instructions Follow Up Care 10/05/2024 12:47:45 With:Roxana Odom Address: [address] [place] [id number] Business (1) When:10/08/2024 14:09:24 With:XXXX NONE Address: [place] When:Within 3 Day(s) [facility] Evaluation + Plan note 10-05-2024 Note Date & Type Note Facility 10-05-2024 Evaluation + Plan note Extrac lesli from: Title:ED Note Author:Olivier Brunner DO Date:09/24 08/20 Chest wall pain (R07.89: Oth er chest pain) Insomnia (G47.00: Insomnia, unspecified) Orders: methocarbamol, 750 mg = 1 tab(s), Oral, TID, X 7 day(s), # 21 tab(s), Refills(s) 0, Pharmacy: [facility]/pharmacy #[id number], 177, cm, 10/05/24 12:58:00 EDT, Height/Length Dosing, 110, kg, 10/05/24 12:58:00 EDT, Weight Dosing naproxen, 500 mg = 1 tab(s), Oral, BID, Take one tab by mouth two times a day, # 14 tab(s), Refills(s) 0, Pharmacy: [facility]/pharmacy #[id number], 177, cm, 10/05/24 12:58:00 EDT, Height/Length Dosing, 110, kg, 10/05/24 12:58:00 EDT, Weight Dosing trazodone, 50 mg = 1 tab(s), Oral, Once a day (at bedtime), X 10 day(s), # 10 tab(s), Refills(s) 0, Pharmacy: [facility]/pharmacy #[id number], 177, cm, 10/05/24 12:58:00 EDT, Height/Length Dosing, 110, kg, 10/05/24 12:58:00 EDT, Weight Dosing CBC w/ Auto Diff Comprehensive Metabolic Panel eGFR [facility] Evaluation note Note Date & Type Note Facility Evaluation note No assessment information availa [facility] Work Phone: Hospital course Narrative Note Date & Type Note Facility Hospital course Narrative No data available for this section [facility] Progress note Note Date & Type Note Facility Progress note No data available for this section [facility] Summary Purpose Family History No Family History Records Found Relationship Condition Age at Onset Recorded Date/T claus Not Specified No pertinent family history Unknown Advance Directives No Advanced Directives Records Found Advance Directive Response Recorded Date/ Time Advance Directives No April 7:06pm Additional Source Comments (unrecognized sect ion and content) No Status Records FoundNo Status Records FoundNo Status Records FoundNo Status Records FoundNo Status Records FoundNo Status Records Found INFORMATION SOURCE (unrecogn ized section and content) DATE CREATED AUTHOR 05/14/2020 [facility] DATE CREATED AUTHOR AUTHOR'S ORGANIZ ATION 10/06/2024 [facility] DATE CREATED AUTHOR AUTHOR'S ORGANIZ ATION 10/06/2024 [facility] DATE CREATED AUTHOR AUTHOR'S ORGANIZ ATION 10/10/2024 [facility] Care Teams (unrecognized sec tion and content) Team Status: Inactive Member Role Status Dates Elisha Walsh DO Attending Provider Active Sta rt: October 02, 2024 End: Key 9th, 2025 Goals (unrecognized section and content) Goals may be documented in a n alternate section No data available for this section FOR RECORDS PERTAINING TO PATIENTS WHO ARE OR HAVE BEEN ENROLLED IN A CHEMICAL DEPENDENCY/SUBSTANCEABUSE PROGRAM, SOME INFORMATION MAY BE OMITTED. This clinical summary was aggregated from multiple sources. Caution should be exercised in using it in the provision of clinical care. This summary normalizes information from multiple sources, and as a consequence, information in this document may materially change the coding, format and clinical context of patient data. In addition, data may be omitted in some cases. CLINICAL DECISIONS SHOULD BE BASED ON THE PRIMARY CLINICAL RECORDS. [facility]. provides no warranty or guarantee of the accuracy or completeness of information in this document.
--- NOTE | 2024-12-08 01:35 | PC.NURSE ---
States tingling at tip of penis prior to going to bathroom. States no pain with urination and some times if he rbs the area the tinging goes away
[2024-12-08 01:36] LABS: Bilirubin Urine NEGATIVE (NEGATIVE); Blood Urine NEGATIVE (NEGATIVE); Clarity Urine CLEAR (CLEAR); Color Urine YELLOW (YELLOW); Glucose Urine UA NEGATIVE (NEGATIVE); Ketones Urine NEGATIVE (NEGATIVE); Leukocyte Esterase Urine NEGATIVE (NEGATIVE); Nitrite Urine NEGATIVE (NEGATIVE); Protein Urine NEGATIVE (NEG/TRACE); Specific Gravity Urine 1.025 (1.005-1.025); Urobilinogen Urine 0.2 EU/dL (0.2-1.0)
--- NOTE | 2024-12-08 01:38 | ED.MALEGU1 ---
HPI - Male Genitourinary General Chief complaint: Urogenital-Male Stated complaint: uti Time Seen by Provider: 12/08/24 01:18 Source: patient Mode of arrival: walk-in Limitations: no limitations History of Present Illness HPI Narrative: cc - urethral pain at beginning of urination Pt complains that just as he is about to start urinating he feels pain at the tip of the penis inside but that once the stream starts the pain quickly goes away. No other associated symptoms. This started about a week ago. he changed his soap and was cautious with any shamppoos and soaps while bathing. He also changed his detergent - all without improvement. He denied having any intercourse since 2019 and denied any urethral instrumentation or applying anything to the outside of the penis. Related Data Home Medications ?Medication ?Instructions ?Recorded ?Confirmed CBD tincture 12/08/24 Previous Rx's ?Medication ?Instructions ?Recorded cyclobenzaprine 10 mg tablet 10 mg PO TID PRN muscle spasm #14 01/24/23 tabs ibuprofen 800 mg tablet 800 mg PO Q8H PRN pain #20 tabs 01/24/23 Allergies Allergy/AdvReac Type Severity Reaction Status Date / Time amoxicillin Allergy Severe Unknown Verified 12/08/24 01:24 PFSH PFSH Social History Little interest or pleasure in doing things: not at all Feeling down, depressed, or hopeless: not at all Exam Narrative Exam Narrative: Nurses notes and vital signs reviewed and patient is not hypoxic. afebrile General: Well-appearing and in no apparent distress. Skin: Warm, dry, no pallor noted. No rash to genitalia. Cardiovascular: normal peripheral perfusion. Respiratory: No accessory muscle use or respiratory distress. Back: No CVA tenderness Musculoskeletal: normal ROM GI: Abdomen is soft, non-distended. Normal bowel sounds. No tenderness to palpation. No rebound, guarding, or rigidity noted. Genitalia: normal male external genitalia. No ulcers, swelling, palpable masses or other lesions. No inguinal lymphadenopathy. Neurological: A&O x4. No cranial nerve dysfunction observed. No truncal ataxia. Moves all extremities. Sensation intact. Psychiatric: Cooperative and interactive. Normal mood and affect. Constitutional Vital Signs, click to edit/add: Last Vital Signs Temp 98.5 F 12/08/24 01:20 Pulse 91 H 12/08/24 01:20 Resp 16 12/08/24 01:20 BP 163/105 H 12/08/24 01:20 Pulse Ox 99 12/08/24 01:20 O2 Del Method Room Air 12/08/24 01:20 Course Vital Signs Vital signs: Vital Signs Temperature 98.5 F 12/08/24 01:20 Pulse Rate 91 H 12/08/24 01:20 Respiratory Rate 16 12/08/24 01:20 Blood Pressure 163/105 H 12/08/24 01:20 Pulse Oximetry 99 12/08/24 01:20 Oxygen Delivery Method Room Air 12/08/24 01:20 Temperature 98.5 F 12/08/24 01:20 Pulse Rate 91 H 12/08/24 01:20 Respiratory Rate 16 12/08/24 01:20 Blood Pressure 163/105 H 12/08/24 01:20 Pulse Oximetry 99 12/08/24 01:20 Oxygen Delivery Method Room Air 12/08/24 01:20 MDM - Male Genitourinary MDM Narrative Medical decision making narrative: Pt unlikely to have UTI according to his lack of recent intercourse x5 years. Urine sample - clean catch - obtained and sent to the lab for testing. Only 0-2 red blood cells noted on UA, the remainder was negative. He was given reassurance and discharged home. We will call him if for some reason the gonorrhea or chlamydia testing reveals acute infection. In the meantime the patient was instructed to avoid instrumentation, caution with any manipulation of the area, continue caution regarding detergent use and soap in that area. Lab Data Attestation: I reviewed the patient's lab results. Labs: Lab Results 12/08/24 Range/Units 01:25 Urine Color Yellow (YELLOW) Urine Clarity Clear (CLEAR) Urine pH 6.0 (5.0-9.0) Ur Specific [place] 1.025 (1.005-1.025) Urine Protein Negative (NEG/TRACE) mg/dL Urine Glucose (UA) Negative (NEGATIVE) mg/dL Urine Ketones Negative (NEGATIVE) mg/dL Urine Occult Blood Negative (NEGATIVE) Urine Nitrite Negative (NEGATIVE) Urine Bilirubin Negative (NEGATIVE) Urine Urobilinogen 0.2 (0.2-1.0) EU/dL Ur Leukocyte Esterase Negative (NEGATIVE) Urine RBC None seen (0-2) #/HPF Urine WBC 0-2 A (NONE SEEN) #/HPF Ur Squamous Epith Cells None seen (NONE/RARE) #/LPF Urine Crystals None seen (None Seen) #/HPF Urine Bacteria None seen (NONE SEEN) #/HPF Urine Casts None seen (NONE SEEN) #/LPF Urine Mucus None seen (NONE SEEN) Ur Culture Indicated? No Discharge Plan Discharge Chief Complaint: Urogenital-Male Clinical Impression: Urethritis Patient Disposition: Home, Self-Care Time of Disposition Decision: 01:45 Prescriptions / Home Meds: No Action ibuprofen 800 mg tablet 800 mg PO Q8H PRN (Reason: pain) Qty: 20 0RF cyclobenzaprine 10 mg tablet 10 mg PO TID PRN (Reason: muscle spasm) Qty: 14 0RF CBD tincture Print Language: [place] Citizen Instructions: Urethritis (ED) Referrals: Jr Odom MD [Primary Care Provider, Family Practice] - 1 week
[2024-12-08 01:43] LABS: Bacteria Urine NONE SEEN #/HPF (NONE SEEN); Cast Seen? NONE SEEN #/LPF (NONE SEEN); Crystals Seen? None Seen #/HPF (None Seen); Mucus Urine NONE SEEN (NONE SEEN); RBC Urine NONE SEEN #/HPF (0-2); Squamous Epithelial Cell Urine NONE SEEN #/LPF (NONE/RARE); Urine Culture Indicated NO; WBC Urine 0-2 #/HPF (NONE SEEN)
[2024-12-11 04:07] LABS: Neisseria gonorrhoeae, NAA Negative (Negative)
== END 2024-12-08 01:50 | disposition home or self-care (01) ==
PROVIDERS: Emergency Provider Emergency Medicine; PCP Family Medicine
DX: N34.2 Other urethritis (principal)
CPT/HCPCS: 81001; 87491; 87591; 99283